=== PATIENT | male | born 1935 | race Two or more races ===

== ENCOUNTER 2018-05-18 11:08 | Outpatient (CLI) | payer MEDICARE, OTHER ==
[~2018-05-18 11:08] MED LIST: ALLOPURINOL100 M1 ORAL; AMLODIPINE BESYL5 MG ORAL; ASPIR 8181 MG ORAL; BUMETANIDE2 MG ORAL; CATAPRES0.2 MG ORAL; CLONIDINE 0.2M0.2 MG GT; CRESTOR10 M1 ORAL; DEXILANT60 MG ORAL; FLOMAX0.4 MG ORAL; FOLIC ACID1 MG ORAL; GLIMEPIRIDE4 MG ORAL; HUMALOG100 UNIT/4 SUBQ; HYDRALAZINE HCL50 MG ORAL; LANTUS5 UNITS SUBQ; METOPROLOL TART25 MG ORAL; NEXIUM40 MG ORAL; PLAVIX75 MG ORAL; VITAMIN B-12500 MCG ORAL; VITAMIN B650 M1 PO
[2018-05-18 11:49] VITALS: BP 102/44
--- NOTE | 2018-05-18 16:49 | GI Progress Note ---
Assessment/Plan Problems: (1) Diarrhea ICD Codes: R19.7 - Diarrhea, unspecified SNOMED: 16295305 (2) Anemia ICD Codes: D64.9 - Anemia, unspecified SNOMED: 753351113 (3) Hemorrhoid ICD Codes: K64.9 - Unspecified hemorrhoids SNOMED: 59420016 (4) GERD (gastroesophageal reflux disease) ICD Codes: K21.9 - GERD (gastroesophageal reflux disease) SNOMED: 156569267 (5) Constipation ICD Codes: K59.00 - Constipation SNOMED: 63030481 Status: stable Status Narrative Seen with Dr. Santana. Assessment/Plan labs reviewed with patient>> anemia with stable Hgb elevated CEA >> 7.05 weight loss At this time, we will defer colonoscopy given advanced age. We will treat the patient for hemorrhoids, trend his Hgb prior and will consider GI procedures if necessary. [facility] Rx Linzess 72mcg for constipation RTC x 1 month for lab review The patient was seen and examined at bedside and all new and available data was reviewed in the patients chart. I agree with the above findings, impression and plan. (Patient seen earlier today. Signature stamp does not reflect patient encounter time.). - Wai Santana MD Subjective Subjective constipation diarrhea occasional rectal bleed weight loss receives dialysis MWF Objective Last 24 Hour Vital Signs Date Time Temp Pulse Resp B/P (MAP) Pulse Ox O2 Delivery O2 Flow Rate FiO2 05/18/18 11:49 97.9 65 18 102/44 95 97.9 General Appearance: WD/WN, no apparent distress, alert Cardiovascular: normal rate Respiratory/Chest: normal breath sounds, no respiratory distress Abdominal Exam: normal bowel sounds, non tender, soft Extremities: normal range of motion, non-tender Marlys Thibodeaux [employer] May 18, 2018 16:49
== END 2018-05-18 11:42 | disposition home or self-care (01) ==
LOC: PAN 11:08
DX: R19.7 Diarrhea, unspecified (principal); D64.9 Anemia, unspecified; K64.9 Unspecified hemorrhoids; K21.9 Gastro-esophageal reflux disease without esophagitis; K59.00 Constipation, unspecified
CPT/HCPCS: 99213

== ENCOUNTER 2019-09-14 13:19 | Outpatient (CLI) | payer MEDICARE, OTHER ==
--- NOTE | 2019-09-14 13:23 | General Progress Note ---
Assessment/Plan Problem List: (1) CAD (coronary artery disease) ICD Codes: I25.10 - CAD (coronary artery disease) SNOMED: 458978190 (2) HTN (hypertension) ICD Codes: I10 - HTN (hypertension) SNOMED: 29873949 (3) DM (diabetes mellitus) ICD Codes: E11.9 - DM (diabetes mellitus) SNOMED: 74145810 (4) Colon polyps ICD Codes: K63.5 - Colon polyps SNOMED: 90542954 (5) BPH (benign prostatic hyperplasia) ICD Codes: N40.0 - BPH (benign prostatic hyperplasia) SNOMED: 377206193 (6) Constipation ICD Codes: K59.00 - Constipation SNOMED: 52000162 (7) Hemorrhoid ICD Codes: K64.9 - Unspecified hemorrhoids SNOMED: 98033404 (8) GERD (gastroesophageal reflux disease) ICD Codes: K21.9 - GERD (gastroesophageal reflux disease) SNOMED: 731710849 Assessment/Plan: continue Linzess 290 add prn Senna plan EGD and colonoscopy 09/28/2019 Subjective ROS Limited/Unobtainable: Yes Allergies: Coded Allergies: No Known Allergies (Verified Allergy, Mild, 06/26/10) Objective General Appearance: alert EENT: normal ENT inspection Neck: supple Cardiovascular: normal rate Respiratory/Chest: decreased breath sounds Abdomen: normal bowel sounds, non tender, soft Extremities: non-tender Wai Santana MD Sep 14, 2019 13:23
--- NOTE | 2019-09-14 15:00 | General Progress Note ---
Assessment/Plan Problem List: (1) CAD (coronary artery disease) ICD Codes: I25.10 - CAD (coronary artery disease) SNOMED: 185149971 (2) HTN (hypertension) ICD Codes: I10 - HTN (hypertension) SNOMED: 87109246 (3) DM (diabetes mellitus) ICD Codes: E11.9 - DM (diabetes mellitus) SNOMED: 60639126 (4) Colon polyps ICD Codes: K63.5 - Colon polyps SNOMED: 40025429 (5) BPH (benign prostatic hyperplasia) ICD Codes: N40.0 - BPH (benign prostatic hyperplasia) SNOMED: 991605851 (6) Constipation ICD Codes: K59.00 - Constipation SNOMED: 64040057 (7) Hemorrhoid ICD Codes: K64.9 - Unspecified hemorrhoids SNOMED: 66396322 (8) GERD (gastroesophageal reflux disease) ICD Codes: K21.9 - GERD (gastroesophageal reflux disease) SNOMED: 717504524 Assessment/Plan: c/o bloating add Xifaxan cont current meds last colonoscopy in 2012 barium esophagogram reviewed Subjective ROS Limited/Unobtainable: Yes Allergies: Coded Allergies: No Known Allergies (Verified Allergy, Mild, 06/26/10) Objective General Appearance: alert EENT: normal ENT inspection Neck: supple Cardiovascular: normal rate Respiratory/Chest: decreased breath sounds Abdomen: normal bowel sounds, non tender, soft Extremities: non-tender Wai Santana MD Sep 14, 2019 14:59
--- NOTE | 2019-09-14 15:46 | General Progress Note ---
Assessment/Plan Problem List: (1) CAD (coronary artery disease) ICD Codes: I25.10 - CAD (coronary artery disease) SNOMED: 485955813 (2) HTN (hypertension) ICD Codes: I10 - HTN (hypertension) SNOMED: 23707564 (3) DM (diabetes mellitus) ICD Codes: E11.9 - DM (diabetes mellitus) SNOMED: 50804687 (4) Colon polyps ICD Codes: K63.5 - Colon polyps SNOMED: 16448691 (5) BPH (benign prostatic hyperplasia) ICD Codes: N40.0 - BPH (benign prostatic hyperplasia) SNOMED: 754371751 (6) Constipation ICD Codes: K59.00 - Constipation SNOMED: 00972406 (7) Hemorrhoid ICD Codes: K64.9 - Unspecified hemorrhoids SNOMED: 46329986 (8) GERD (gastroesophageal reflux disease) ICD Codes: K21.9 - GERD (gastroesophageal reflux disease) SNOMED: 146374605 Assessment/Plan: c/o bloating add Xifaxan cont current meds last colonoscopy in 2012 barium esophagogram reviewed Subjective ROS Limited/Unobtainable: Yes Allergies: Coded Allergies: No Known Allergies (Verified Allergy, Mild, 06/26/10) Objective General Appearance: alert EENT: normal ENT inspection Neck: supple Cardiovascular: normal rate Respiratory/Chest: lungs clear Abdomen: normal bowel sounds, non tender, soft Extremities: non-tender Wai Santana MD Sep 14, 2019 15:46
== END 2019-09-14 15:19 | disposition home or self-care (01) ==
LOC: PAN 13:19
DX: K63.5 Polyp of colon (principal); E11.9 Type 2 diabetes mellitus without complications; I10 Essential (primary) hypertension; I25.10 Atherosclerotic heart disease of native coronary artery without angina pectoris; N40.0 Benign prostatic hyperplasia without lower urinary tract symptoms; K64.9 Unspecified hemorrhoids; K21.9 Gastro-esophageal reflux disease without esophagitis; I11.9 Hypertensive heart disease without heart failure
CPT/HCPCS: 99212